=== PATIENT | female | born 1975 | race Hispanic/Latino ===

== ENCOUNTER 2017-05-26 11:52 | Emergency (ER) | payer SELFPAY ==
[~2017-05-26] VITALS: Ht 160 cm; Wt 80.0 kg
[2017-05-26 12:29] LABS: HEMATOCRIT 39.9 % (37.0-47.0); HEMOGLOBIN 13.3 g/dl (12.0-16.0); IMMATURE GRANULOCYTES 0.5 % (0.0-1.0); MEAN CELL VOLUME 86.7 fL CALC (80.0-100.0); MEAN CORPUSCULAR HGB 28.9 pG CALC (26.0-32.0); MEAN CORPUSCULAR HGB CONC 33.3 g/L CALC (32.0-36.0); NEUT# 15.35 thou/uL (2.00-7.15); RED BLOOD COUNT 4.6 mill/uL (4.20-5.60); RED CELL DISTRI WIDTH 12.2 % (11.5-15.5)
[2017-05-26 12:43] LABS: ALBUMIN 4.4 g/dL (3.2-5.0); ALKALINE PHOSPHATASE 89 u/l (38-126); ANION GAP 14 (6-22 (CALC)); BILIRUBIN, TOTAL 0.7 mg/dL (0.0-1.4); BUN 10 mg/dL (7-17); BUN/CREATININE RATIO 15 (12-20 (CALC)); CALCIUM 9.2 mg/dL (8.4-10.2); CARBON DIOXIDE 25 mmol/l (22-30); CHLORIDE 104 mmol/l (95-108); CREATININE 0.7 mg/dL (0.5-1.0); GFR > 60 ML/MIN (>=60 (CALC)); GFR FOR AFR.AMER. > 60 ML/MIN (>=60 (CALC)); GLUCOSE 135 mg/dL (65-105); POTASSIUM 3.6 mmol/l (3.5-5.1); SGOT/AST 22 u/l (14-36); SGPT/ALT 32 u/l (9-52); SODIUM 139 mmol/l (137-146); TOTAL PROTEIN 7.1 g/dL (6.3-8.2)
[2017-05-26 15:03] LABS: URINE BILIRUBIN - DIPSTICK NEGATIVE (NEGATIVE); URINE BLOOD DIPSTICK TRACE-INTACT (NEGATIVE); URINE CLARITY CLEAR; URINE COLOR YELLOW; URINE GLUCOSE - DIPSTICK NEGATIVE (NEGATIVE); URINE KETONE TRACE mg/dL (NEGATIVE); URINE LEUK ESTERASE NEGATIVE (NEGATIVE); URINE NITRITE - DIPSTICK NEGATIVE (Negative); URINE PROTEIN - DIPSTICK NEGATIVE (NEG-TRACE); URINE UROBILINOGEN - DIPSTICK 0.2 E.U./dL (0.2)
[2017-05-26] MEDS ORDERED: MOTRIN800 MG PO (15:47)
[2017-05-26] MEDS ORDERED: BACTRIM DS1 TAB PO (15:47)
[2017-05-26] MEDS ORDERED: FLONASE AL50 MCG/ACT NAB (15:47)
[2017-05-26] MEDS ORDERED: AFRIN 12 HOUR0.05 % (15:47)
[2017-05-26 15:53] VITALS: BP 136/72
== END 2017-05-26 16:00 | disposition home or self-care (01) | DRG 103 ==
LOC: ED 11:52
PROVIDERS: Emergency Medicine
DX: R51 Headache (principal)

== ENCOUNTER 2023-02-05 20:04 | Inpatient (IN) | payer OTHER ==
[~2023-02-05] VITALS: Ht 160 cm; Wt 86.0 kg
[2023-02-05] VITALS (7 sets, daily range): BP systolic 86–127; BP diastolic 42–62
[~2023-02-05 20:04] MED LIST: AFRIN 12 HOUR0.05 %; BACTRIM DS1 TAB PO; FLONASE AL50 MCG/ACT NAB; MOTRIN800 MG PO
[2023-02-05] MEDS ORDERED: TOPAMAX25 MG PO (20:38)
[2023-02-05] MEDS ORDERED: ZYRTEC10 MG PO (20:39)
[2023-02-05] MEDS ORDERED: PROZAC40 MG PO (20:40)
[2023-02-05] MEDS ORDERED: GABAPENTIN300 M2 PO (20:41)
[2023-02-05 21:09] LABS: URINE BLOOD DIPSTICK SMALL (NEGATIVE); URINE COLOR YELLOW; URINE GLUCOSE - DIPSTICK NEGATIVE (NEGATIVE); URINE KETONE NEGATIVE (NEGATIVE); URINE LEUK ESTERASE TRACE (NEGATIVE); URINE PH 6.5 (4.5-8.0); URINE PROTEIN - DIPSTICK NEGATIVE (NEG-TRACE); URINE UROBILINOGEN - DIPSTICK 0.2 E.U./dL (0.2)
[2023-02-05 21:09] LABS: BASO% 0.1 % (0-3); EOS% 0.3 % (0-8); HEMATOCRIT 37.3 % (37.0-47.0); HEMOGLOBIN 11.8 g/dl (12.0-16.0); IMMATURE GRANULOCYTES 0.5 % (0.0-5.0); LYMPH% 9.8 % (15-41); MEAN CELL VOLUME 88.6 fL CALC (80.0-100.0); MEAN CORPUSCULAR HGB CONC 31.6 g/dL CAL (32.0-36.0); MONO% 3.6 % (2-13); NEUT# 11.74 thou/uL (2.00-7.15); NEUT% 85.7 % (42-76); RED BLOOD COUNT 4.21 mill/uL (4.20-5.60); RED CELL DISTRI WIDTH 12.7 % (11.5-15.5)
[2023-02-05 21:12] LABS: URINE NITRITE - DIPSTICK NEGATIVE (Negative); URINE RBC 0-2 RBC/hpf (0-5)
[2023-02-05 21:24] LABS: ALKALINE PHOSPHATASE 95 u/l (38-126); ANION GAP 10 (6-22 (CALC)); BUN 17 mg/dL (7-17); BUN/CREATININE RATIO 19 (12-20 (CALC)); CARBON DIOXIDE 21 mmol/l (22-30); CHLORIDE 105 mmol/l (95-108); CREATININE 0.9 mg/dL (0.5-1.0); GFR FOR AFR.AMER. > 60 ML/MIN (>=60 (CALC)); GFR OTHER RACES > 60 ML/MIN (>=60 (CALC)); SGOT/AST 26 u/l (14-36); SODIUM 134 mmol/l (137-146)
[2023-02-05 21:26] LABS: BILIRUBIN, TOTAL 0.4 mg/dL (0.02-1.3)
[2023-02-06] VITALS (9 sets, daily range): BP systolic 88–120; BP diastolic 49–72
[2023-02-06 05:01] LABS: BASO% 0.3 % (0-3); EOS% 0.6 % (0-8); HEMATOCRIT 34.4 % (37.0-47.0); HEMOGLOBIN 11.1 g/dl (12.0-16.0); IMMATURE GRANULOCYTES 0.6 % (0.0-5.0); LYMPH% 9.7 % (15-41); MEAN CELL VOLUME 89.6 fL CALC (80.0-100.0); MEAN CORPUSCULAR HGB 28.9 pG CALC (26.0-32.0); MEAN CORPUSCULAR HGB CONC 32.3 g/dL CAL (32.0-36.0); MONO% 2.6 % (2-13); NEUT# 10.42 thou/uL (2.00-7.15); NEUT% 86.2 % (42-76); RED BLOOD COUNT 3.84 mill/uL (4.20-5.60); RED CELL DISTRI WIDTH 13.1 % (11.5-15.5)
[2023-02-06 05:17] LABS: ALKALINE PHOSPHATASE 85 u/l (38-126); ANION GAP 8 (6-22 (CALC)); BILIRUBIN, TOTAL 0.5 mg/dL (0.02-1.3); BUN 13 mg/dL (7-17); BUN/CREATININE RATIO 14 (12-20 (CALC)); CARBON DIOXIDE 21 mmol/l (22-30); CHLORIDE 112 mmol/l (95-108); CREATININE 0.9 mg/dL (0.5-1.0); GFR FOR AFR.AMER. > 60 ML/MIN (>=60 (CALC)); GFR OTHER RACES > 60 ML/MIN (>=60 (CALC)); POTASSIUM 3.1 mmol/l (3.5-5.1); SGOT/AST 26 u/l (14-36); SODIUM 137 mmol/l (137-146); TOTAL PROTEIN 5.6 g/dL (6.3-8.2)
[2023-02-06 12:00] LABS: URINE BILIRUBIN - DIPSTICK NEGATIVE (NEGATIVE)
[2023-02-07] VITALS (7 sets, daily range): BP systolic 112–129; BP diastolic 64–74
[2023-02-07 05:24] LABS: BASO% 0.2 % (0-3); EOS% 0.5 % (0-8); HEMATOCRIT 33.6 % (37.0-47.0); HEMOGLOBIN 10.7 g/dl (12.0-16.0); IMMATURE GRANULOCYTES 0.3 % (0.0-5.0); MEAN CELL VOLUME 90.1 fL CALC (80.0-100.0); MEAN CORPUSCULAR HGB 28.7 pG CALC (26.0-32.0); MEAN CORPUSCULAR HGB CONC 31.8 g/dL CAL (32.0-36.0); MONO% 8.8 % (2-13); NEUT# 14.11 thou/uL (2.00-7.15); NEUT% 82.2 % (42-76); RED BLOOD COUNT 3.73 mill/uL (4.20-5.60)
[2023-02-07 05:49] LABS: ALKALINE PHOSPHATASE 86 u/l (38-126); ANION GAP 8 (6-22 (CALC)); BILIRUBIN, TOTAL 0.3 mg/dL (0.02-1.3); BUN 7 mg/dL (7-17); BUN/CREATININE RATIO 11 (12-20 (CALC)); CARBON DIOXIDE 21 mmol/l (22-30); CHLORIDE 110 mmol/l (95-108); CREATININE 0.7 mg/dL (0.5-1.0); GFR FOR AFR.AMER. > 60 ML/MIN (>=60 (CALC)); GFR OTHER RACES > 60 ML/MIN (>=60 (CALC)); MAGNESIUM 1.8 mg/dL (1.6-2.3); POTASSIUM 3.3 mmol/l (3.5-5.1); SGOT/AST 24 u/l (14-36); SODIUM 136 mmol/l (137-146); TOTAL PROTEIN 5.7 g/dL (6.3-8.2)
[2023-02-08 00:06] VITALS: BP 119/76
[2023-02-08 04:04] VITALS: BP 138/82
[2023-02-08 05:14] LABS: BASO% 0.4 % (0-3); EOS% 0.8 % (0-8); HEMATOCRIT 37.2 % (37.0-47.0); HEMOGLOBIN 11.7 g/dl (12.0-16.0); IMMATURE GRANULOCYTES 0.6 % (0.0-5.0); LYMPH% 9.6 % (15-41); MEAN CELL VOLUME 89.4 fL CALC (80.0-100.0); MEAN CORPUSCULAR HGB 28.1 pG CALC (26.0-32.0); MEAN CORPUSCULAR HGB CONC 31.5 g/dL CAL (32.0-36.0); MONO% 6.6 % (2-13); NEUT# 8.89 thou/uL (2.00-7.15); RED BLOOD COUNT 4.16 mill/uL (4.20-5.60); RED CELL DISTRI WIDTH 12.7 % (11.5-15.5)
[2023-02-08 05:31] LABS: ALBUMIN 3.3 g/dL (3.2-5.0); ALKALINE PHOSPHATASE 93 u/l (38-126); ANION GAP 10 (6-22 (CALC)); BILIRUBIN, TOTAL 0.2 mg/dL (0.02-1.3); BUN 8 mg/dL (7-17); BUN/CREATININE RATIO 12 (12-20 (CALC)); CARBON DIOXIDE 21 mmol/l (22-30); CHLORIDE 111 mmol/l (95-108); CREATININE 0.6 mg/dL (0.5-1.0); GFR FOR AFR.AMER. > 60 ML/MIN (>=60 (CALC)); GFR OTHER RACES > 60 ML/MIN (>=60 (CALC)); MAGNESIUM 1.8 mg/dL (1.6-2.3); POTASSIUM 4.4 mmol/l (3.5-5.1); SGOT/AST 22 u/l (14-36); SODIUM 138 mmol/l (137-146)
[2023-02-08 07:56] VITALS: BP 109/69
[2023-02-08] MEDS ORDERED: AMOX/K CLAV875 M1 PO (11:11)
[2023-02-08 11:24] VITALS: BP 115/75
== END 2023-02-08 11:41 | disposition home or self-care (01) | DRG 872 ==
LOC: ED 20:04 → MS2 22:42
PROVIDERS: Emergency Medicine; Nurse Practitioner Family; ADMIT Internal Medicine; ATTEND Internal Medicine
DX: A41.9 Sepsis, unspecified organism (principal); I95.89 Other hypotension; H72.91 Unspecified perforation of tympanic membrane, right ear; G50.0 Trigeminal neuralgia; F41.9 Anxiety disorder, unspecified; G43.909 Migraine, unspecified, not intractable, without status migrainosus; Z20.822 Contact with and (suspected) exposure to COVID-19
CPT/HCPCS: J1650; Q9967